=== PATIENT | male | born 1960 | race Caucasian/White ===

== ENCOUNTER 2018-05-14 14:21 | Outpatient (CLI) | payer MEDICARE ==
[~2018-05-14] VITALS: Ht 188 cm; Wt 79.4 kg
[~2018-05-14 14:21] MED LIST: ALBU8.5H2 IH; ALPR1T PO; ASP325T PO; AZTH250C PO; CEPH-507 PO; DARU1TAB; DARU800T PO; DRON10CA2 PO; DRON5CAP PO; DZPM2T PO; EMTR1TAB6 PO; FERR-57 PO; HYDR-2890 PO; HYDR-700; IRON150C8 PO; KETO-22 PO; MARINOL; NYST1000 PO; PRD20T PO; PREZISTA PO; RALT400T PO; RILP25TA PO; RITO100T PO; SULF1TAB35 PO; TRAM50TA2; TRAM50TA2 PO
[2018-05-14] MEDS ORDERED: RALT600T PO (15:09)
[2018-05-14] MEDS ORDERED: DARU1TAB PO (15:09)
[2018-05-17] MEDS ORDERED: OXYC1TAB16 PO (12:08)
== END 2018-05-14 15:22 | disposition home or self-care (01) ==
LOC: PREOP 14:21
PROVIDERS: ATTEND Surgery
DX: Z01.818 Encounter for other preprocedural examination (principal)

== ENCOUNTER 2018-05-17 06:58 | Day surgery (SDC) | payer MEDICAID, MEDICARE ==
[~2018-05-17] VITALS: Ht 188 cm; Wt 79.4 kg
[~2018-05-17 06:58] MED LIST changes: +DARU1TAB PO; +RALT600T PO
[2018-05-17] MEDS ORDERED: ceFAZolin 2 GM IV Premixed 50 ML IV ONE (07:15)
[2018-05-17 07:30] VITALS: BP 142/87
[2018-05-17] MEDS: LACTATED RINGERS 1,000 ML IV PRN ×2 (07:41→10:02)
[2018-05-17 07:44] LABS: BASOPHILS % (AUTO) 0 % (0-10); EOSINOPHILS # (AUTO) 0.2 10^3/uL (0.0-0.3); EOSINOPHILS % (AUTO) 2 % (0-10); HEMATOCRIT 41 % (40-54); HEMOGLOBIN 13.6 G/DL (13.3-17.7); LYMPHOCYTES # (AUTO) 1.4 X 10^3 (1.0-4.0); LYMPHOCYTES % (AUTO) 15 % (12-44); MEAN CORPUSCULAR HEMOGLOBIN 32 PG (25-34); MEAN CORPUSCULAR HGB CONC 33 G/DL (32-36); MEAN CORPUSCULAR VOLUME 97 FL (80-99); MEAN PLATELET VOLUME 9.4 FL (7.4-10.4); MONOCYTES # (AUTO) 1.2 X 10^3 (0.0-1.0); MONOCYTES % (AUTO) 13 % (0-12); NEUTROPHILS # (AUTO) 6.7 X 10^3 (1.8-7.8); NEUTROPHILS % (AUTO) 71 % (42-75); PLATELET COUNT 178 10^3/uL (130-400); RED BLOOD COUNT 4.25 10^6/uL (4.35-5.85); RED CELL DISTRIBUTION WIDTH 12.7 % (10.0-14.5); WHITE BLOOD COUNT 9.4 10^3/uL (4.3-11.0)
[2018-05-17] MEDS ORDERED: DEXM25CP PO (08:11)
[2018-05-17] MEDS ORDERED: SULF1TAB35 PO (08:15)
--- NOTE | 2018-05-17 08:35 | Progress Note-Pre Operative ---
Pre-Operative Progress Note H&P Reviewed The H&P was reviewed, patient examined and no changes noted. Date Seen by Provider: May 17, 2018 Time Seen by Provider: 08:20 Date H&P Reviewed: May 17, 2018 Time H&P Reviewed: 08:25 Pre-Operative Diagnosis: Symptomatic Bilateral inguinal hernias, family history of colon cancer NADINE ROMERO APRN May 17, 2018 08:35
[2018-05-17] MEDS ORDERED: BUP/EPI 0.5% 1:200,000 (SENSORCAINE) 30 ML VIAL ONE (08:59)
[2018-05-17] MEDS ORDERED: MIDAZOLAM 2 MG/2 ML (VERSED) VIAL ONE (09:07)
[2018-05-17] MEDS ORDERED: fentaNYL INJECTION 100 MCG/2 ML AMP ONE (09:07)
[2018-05-17] MEDS ORDERED: proPOfol 200 MG/20 ML (DIPRIVAN) VIAL IV ONE (09:07)
[2018-05-17] MEDS ORDERED: LIDOCAINE PF 2% 5 ML (XYLOCAINE) VIAL ONE (09:07)
[2018-05-17] MEDS ORDERED: ONDANSETRON 4 MG/2 ML (SDV) Z0FRAN ONE (09:18)
[2018-05-17] MEDS ORDERED: ROCURONIUM 10 MG/ML 5 ML SYRINGE IV ONE (09:18)
[2018-05-17] MEDS ORDERED: SEVOFLURANE (ULTANE) 15 ML INHAL SOLN ONE ×9 (09:18→11:23)
[2018-05-17] MEDS ORDERED: DEXAMETHASONE 10 MG/ML (DECADRON) 1 ML VIAL ONE (09:18)
[2018-05-17] MEDS ORDERED: NEOSTIGMINE 1 MG/ML 5 ML SYRINGE ONE (10:51)
[2018-05-17] MEDS ORDERED: GLYCOPYRROLATE 0.2 MG/ML (ROBINUL) 2 ML VIAL ONE (10:51)
[2018-05-17] MEDS ORDERED: PHENYLEPHRINE 100 MCG/ML 10 ML (ANESTHESIA) SYR ONE (11:07)
[2018-05-17] MEDS ORDERED: morphine INJ 10 MG/ML 1ML (SYR OR VIAL) IVP ONE (12:00)
[2018-05-17] MEDS ORDERED: PROMETHAZINE INJ 25 MG/ML (PHENERGAN) AMP IVP ONE (12:00)
[2018-05-17] MEDS ORDERED: MEPERIDINE (DEMEROL) INJ 50 MG/ML IVP ONE (12:00)
--- NOTE | 2018-05-17 12:07 | Progress Note-Post Operative ---
Post-Operative Progess Note Surgeon (s)/Location Analyst (s) Surgeon JUSTIN ROWELL MD Location Analyst: mike garcia [employer] Pre-Operative Diagnosis Symptomatic Bilateral inguinal hernias, family history of colon cancer Post-Operative Diagnosis symptomatic recurrent bilateral direct inguinal hernia. normal colon and rectum. right buttock abscess Procedure & Operative Findings Date of Procedure 05/17/18 Procedure Performed/Findings laparoscopic recurrent bilateral direct inguinal hernia repair with mesh. colonoscopy. incision, drainage and debridement right buttock abscess. Anesthesia Type GET Estimated Blood Loss Estimated blood loss (mL): minimal Specimens/Packing Specimens Removed abscess right buttock Packing: right buttock abscess. JUSTIN ROWELL MD May 17, 2018 12:07 pm
[2018-05-17] MEDS ORDERED: OXYC1TAB16 PO (12:08)
--- NOTE | 2018-05-17 12:10 | Discharge Inst-Surgical ---
D/C Lap Instructions-SORIN New, Converted, or Re-Newed RX: RX on Chart Follow Up Appt in 2 weeks Activity as tolerated No driving for 24 hours No driving while on pain medications Incentive Spirometry use every 2 hours while awake Regular Diet remove packing 24 hours then dry gauze dressing BID and PRN Symptoms to Report: Fever over 101 degree F, Nausea/Vomiting Infection Signs and Symptoms to report: Increased redness, Foul odor of wound, Increased drainage Bathing instructions: May shower Operative Area Clean/Dry; Keep incision clean/dry If any problems/questions: Contact your physician or go to Emergency Room JUSTIN ROWELL MD May 17, 2018 12:10 pm
[2018-05-17 12:45] VITALS: BP 119/76
[2018-05-17] MEDS: ONDANSETRON 4 MG/2 ML (SDV) Z0FRAN IVP PRN ×2 (12:45→13:59)
[2018-05-17] MEDS ORDERED: oxyCODONE/APAP 7.5-325 MG (PERCOCET 7.5) TABLET PO PRN (13:30)
--- NOTE | 2018-05-17 13:45 | Anesthesia-General Post-Op ---
General Patient Condition Mental Status/LOC: Same as Preop Cardiovascular: Satisfactory Nausea/Vomiting: Absent Respiratory: Satisfactory Pain: Controlled Complications: Absent Post Op Complications Complications None Follow Up Care/Instructions Patient Instructions None needed. Anesthesia/Patient Condition Patient Condition Patient is doing well, no complaints, stable vital signs, no apparent adverse anesthesia problems. No complications reported per nursing. SHAYNE WAGGONER CRNA May 17, 2018 13:45
[2018-05-17] MEDS ORDERED: oxyCODONE/APAP 10/325MG (PERCOCET 10) TABLET PO ONE (14:10)
[2018-05-17] MEDS ORDERED: HYDROcodone/APAP 7.5 MG/325 MG (LORTAB, LORCET PLUS) TABLET PO ONE (14:13)
[2018-05-17] MEDS ORDERED: oxyCODONE/APAP 7.5-325 MG (PERCOCET 7.5) TABLET ONE (14:16)
[2018-05-17] MEDS: oxyCODONE/APAP 7.5-325 MG (PERCOCET 7.5) TABLET PO PRN ×4 (14:18→22:46)
[2018-05-17 15:43] VITALS: BP 126/76
[2018-05-17] MEDS ORDERED: ACETAMINOPHEN 325 MG TABLET PO PRN (16:00)
[2018-05-17] MEDS: fentaNYL INJECTION 100 MCG/2 ML AMP IVP PRN ×3 (16:20→20:13)
[2018-05-17 19:14] VITALS: BP 113/72
--- NOTE | 2018-05-17 20:27 | OPERATIVE REPORT ---
DATE OF SERVICE: 05/17/2018 PREOPERATIVE DIAGNOSES: Recurrent bilateral inguinal hernias, family history of colon cancer, right buttock abscess. POSTOPERATIVE DIAGNOSES: Recurrent bilateral direct inguinal hernias, family history of colon cancer, right buttock abscess(3cm). PROCEDURE: Laparoscopic recurrent bilateral inguinal hernia repair with mesh, colonoscopy, incision, drainage and debridement right buttock abscess. ANESTHESIA: General endotracheal. ESTIMATED BLOOD LOSS: Minimal. FINDINGS: Bilateral recurrent direct inguinal hernias. No indirect component. Normal colon and rectum. Right buttock abscess with necrotic overlying skin from what he states is a spider bite. DISPOSITION: The patient tolerated the procedure well. INDICATIONS: The patient is a 57-year-old male who we have seen before in the past. He had bilateral inguinal hernias. There were small at the time; however, symptomatic in 2011. We had undergone a bilateral inguinal hernia repair with mesh as well as a colonoscopy due to a family history of colon cancer in his brother as well as a paternal grandfather having the disease. His colonoscopy was normal. He states that over time he has had reoccurrence of the bulge in the left inguinal region. He states that this has been the past year and has grown larger in size. Upon examination, he does have a recurrent left inguinal hernia; however, a right small inguinal hernia, recurrent inguinal hernia was also identified. Both reducible. He is also in need of a followup colonoscopy. In the interim since we had seen him in the office, he did develop a spider bite in the right buttock and redness, swelling and pain consistent with an abscess. The lesion was approximately 3 cm in circumference. DESCRIPTION OF PROCEDURE: The patient was brought to the operating room, laid supine on the table. After adequate IV pain and sedating medications and general endotracheal intubation, the abdomen was prepped and draped in standard surgical fashion. A 0.5% Marcaine with epinephrine was then used to anesthetize the overlying skin in the infraumbilical ring and a crescent-shaped skin incision made using a 15 blade. A Veress needle was then inserted with a low opening pressure of 0 mmHg. The abdomen was then insufflated to 15 mmHg pressure. The Veress needle removed and a 10 mm Xcel trocar placed followed by a 10 mm 45-degree angle laparoscope visualizing the peritoneal cavity. A 4-quadrant abdominal exploration was performed. Bilateral recurrent direct inguinal hernias were identified with the left being significantly larger than the right with nothing within the hernia sacs. The mesh from the previous hernia sacs were identified and the hernias were both medial to these meshes. Under direct visualization, we then proceed to place bilateral 5 mm ports after the skin and peritoneal lining were anesthetized using 0.5% Marcaine with epinephrine and a transverse skin incision made using 15 blade. The patient was then placed in reverse Trendelenburg position. We first proceeded with repair of the right inguinal hernia. The peritoneal lining was opened using electrocautery. Using a Sonicision, we then proceeded with a preperitoneal dissection using blunt dissection as well as a Sonicision encompassing the previous mesh that was placed as well. We first proceeded laterally to the conjoined tendon and inguinal ligament to the conjoined tendon medially. We then proceeded with inferior dissection encompassing the entire hernia sac as well. Good hemostasis was observed. The cord and its contents were identified and spared throughout the process. A medium size polypropylene mesh was then placed and covering both direct inguinal hernia components both direct and indirect component, potential spaces and tacked to Kali's ligament medially and to the conjoined tendon laterally. A few tacks were then placed to place the mesentery and all previous mesh over the newly placed mesh. In a similar fashion, we then proceeded with repair of the right recurrent inguinal hernia. The peritoneal lining was then opened using Sonicision. We then proceeded with lateral dissection towards the conjoint tendon and inguinal ligament laterally. We then proceeded medially towards the conjoined tendon. We then proceeded to the Kali's ligament. We then proceeded with inferior dissection encompassing the peritoneal lining as well as the previous mesh. We proceeded with inferior dissection identifying the cord and its contents and sparing them throughout the process. A medium size polypropylene mesh was then placed into the defect covering both potential spaces of direct and indirect inguinal hernias and tacked to Kali's ligament medially and to the conjoined tendon laterally. A few tacks were then placed the peritoneal lining completely over the mesh. Good hemostasis was observed. The 10 mm port site fascia and peritoneum were then closed under direct visualization using a Ramón-Mena device and 0 Vicryl suture. The Veress needle removed. The abdomen was desufflated and the remaining ports removed. All skin incisions were closed using 4-0 Monocryl running subcuticular sutures. Wounds were then cleaned and covered with Dermabond. We then proceeded with the colonoscopy. The patient was placed in frog leg position and a digital rectal examination was performed. There were no significant hemorrhoids identified. Normal sphincter tone, so there were no palpable masses. Prostate gland was palpable and appeared normal. The endoscope was then intubated to the anus and rectum gently insufflated. The endoscope was then advanced through the valves of Arreola in the rectum with no polyps or neoplasms identified. We then proceeded through the sigmoid colon where no diverticulosis identified. We then proceeded with the descending, transverse and ascending colon to the cecum. These segments were normal. There were no polyps or neoplasms identified throughout the colon or rectum. Endoscope was then slowly withdrawn while taking a second look and suctioning of residual air with no additional findings. Under the same anesthesia, we then proceeded with the incision and drainage and debridement of the right buttock. A cruciate incision was made using a #11 blade and the cord was cut using 11 blade as well. We then proceeded with debridement and breaking up of loculations using a finger dissection. The abscess cavity was sent for culture and sensitivity. Good hemostasis was observed and then packed with gauze followed by 4 x 4 gauze and ABD pad. The patient tolerated the procedure well. We will have him follow up in the office in approximately 2 weeks. He will be instructed to do no heavy lifting or exertion for the next 2 weeks. He will also be instructed to remove the packing from his right buttock tomorrow and then to apply a gauze dressing on a b.i.d. basis. He may shower; however, not bathe or soak the wound. Job ID: [id number] DocumentID: [id number] Dictated Date: 05/17/2018 12:23:37 Leather Fitter Date: 05/17/2018 20:26:37 Dictated By: JUSTIN ROWELL MD [facility]
[2018-05-18 00:09] VITALS: BP 112/60
[2018-05-18] MEDS: fentaNYL INJECTION 100 MCG/2 ML AMP IVP PRN ×2 (00:33→04:38)
[2018-05-18 04:04] VITALS: BP 124/62
[2018-05-18] MEDS: oxyCODONE/APAP 7.5-325 MG (PERCOCET 7.5) TABLET PO PRN ×2 (06:37→08:23)
[2018-05-18 08:00] VITALS: BP 137/82
[2018-05-18] MEDS ORDERED: CALCIUM CARBONATE 500 MG (TUMS) TAB.CHEW ONE (10:21)
[2018-05-18] MEDS ORDERED: PROMETHAZINE 25 MG (PHENERGAN) TAB ONE (10:27)
[2018-05-18] MEDS ORDERED: CALCIUM CARBONATE 500 MG (TUMS) TAB.CHEW PO ONE (10:30)
[2018-05-18] MEDS ORDERED: PROMETHAZINE 25 MG (PHENERGAN) TAB PO NR (10:30)
[2018-05-18 10:35] VITALS: BP 137/82
== END 2018-05-18 10:35 | disposition home or self-care (01) ==
LOC: SDC 06:58 → 4TH 12:45 → SDC 05-18 10:35
PROVIDERS: ATTEND Surgery
DX: K40.21 Bilateral inguinal hernia, without obstruction or gangrene, recurrent (principal); Z12.11 Encounter for screening for malignant neoplasm of colon; T63.391A Toxic effect of venom of other spider, accidental (unintentional), initial encounter; L02.31 Cutaneous abscess of buttock; Z80.0 Family history of malignant neoplasm of digestive organs; B20 Human immunodeficiency virus [HIV] disease; D69.59 Other secondary thrombocytopenia; B19.20 Unspecified viral hepatitis C without hepatic coma; F17.210 Nicotine dependence, cigarettes, uncomplicated; Z79.899 Other long term (current) drug therapy
CPT/HCPCS: 36415; 85025; 87070; 87075; 87077; 87081; 87186; 87205; 94664

== ENCOUNTER 2018-11-28 11:38 | Emergency (ER) | payer MEDICARE ==
[~2018-11-28] VITALS: Ht 188 cm; Wt 85.3 kg
[~2018-11-28 11:38] MED LIST changes: +DEXM25CP PO; +OXYC1TAB16 PO
[2018-11-28] MEDS ORDERED: TRIM/SULFAMETH 160/800 (SEPTRA DS) TAB PO ONE (12:15)
[2018-11-28] MEDS ORDERED: TETANUS,DIPTH,PERTUSS P/F (BOOSTRIX) 0.5 ML VIAL IM ONE (12:15)
[2018-11-28] MEDS ORDERED: SULF1TAB35 PO (13:02)
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
[2018-11-28 13:17] VITALS: BP 116/66
== END 2018-11-28 13:17 | disposition home or self-care (01) ==
LOC: EDUNIT# 11:38 → ER 11:39
DX: S90.811A Abrasion, right foot, initial encounter (principal); S90.812A Abrasion, left foot, initial encounter; J30.2 Other seasonal allergic rhinitis; B19.20 Unspecified viral hepatitis C without hepatic coma; F31.9 Bipolar disorder, unspecified; F17.210 Nicotine dependence, cigarettes, uncomplicated; Z21 Asymptomatic human immunodeficiency virus [HIV] infection status; Z98.890 Other specified postprocedural states; Z80.0 Family history of malignant neoplasm of digestive organs; Z80.1 Family history of malignant neoplasm of trachea, bronchus and lung; W45.0XXA Nail entering through skin, initial encounter
CPT/HCPCS: 90471; 90715; 99284